=== PATIENT | female | born 1960 | race Native Hawaiian/Other Pacific Islander ===

== ENCOUNTER 2016-11-28 13:38 | Outpatient (CLI) | payer BC ==
[2016-11-28 15:22] LABS: BASOPHILS % 0.4 (0.0-1.5); EOSINOPHILS % 1.7 % (0.0-6.8); MEAN CORPUSCULAR HEMOGLOBIN 29.5 pg (28.0-34.0); MEAN CORPUSCULAR VOLUME 87.6 fl (80.0-100.0); MONOCYTES % 3.8 % (0.0-11.0); NEUTROPHILS # 4.3 # k/uL (1.4-7.7)
[2016-11-28 15:33] LABS: eGFR (African) > 60; eGFR (Non-African) > 60
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
== END 2016-11-28 13:40 ==
LOC: RHEU 13:38
PROVIDERS: ATTEND Internal Medicine
DX: M54.2 Cervicalgia (principal); M54.5 Low back pain; M77.12 Lateral epicondylitis, left elbow; M77.11 Lateral epicondylitis, right elbow; G89.4 Chronic pain syndrome
CPT/HCPCS: 36415; 80053; 84443; 85025; 85651; 86140; 86200; 86431; 86480; 99203

== ENCOUNTER 2017-01-23 14:12 | Outpatient (CLI) | payer BC ==
--- NOTE | 2017-01-23 19:53 | Diagnostic Imaging Report ---
ALFONSO ANDREWS~ [facility] [address] [facility].[address] [address] ~ ~ ~ ~ Report Submission Date: Jan 23, 2017 3:31:49 PM CDT Patient ~ Study Name: JAYDEN GUY ~ Date: Jan 23, 2017 3:07:02 PM CDT ~ Modality Type: CR Gender: F ~ Description: CHEST : 60 ~ Institution: [facility] Physician: ALFONSO ANDREWS ~ ~ ~ ~ Chest -two views CLINICAL HISTORY: ~ Chronic intermittent cough. FINDINGS: ~ Examination of the chest in PA and lateral views with no prior film for comparison demonstrates the lungs to be clear. ~Cardiovascular and mediastinal silhouettes are within normal limits. ~The bony thorax is intact. IMPRESSION: ~ No active disease. ~ Electronically signed on Jan 23, 2017 3:31:49 PM CDT by: Arvin ARMIJO
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
--- NOTE | 2017-01-27 11:56 | OP Clinic Progress Note ---
REASON FOR VISIT: Kimberly Motta returns for followup. Her chief complaint today is low back pain with cramping and occasional cramping in her legs. Her neck and elbow pain has not been an issue. She has had no joint swelling. The other issue is her positive QuantiFERON-TB Gold test and she tells me now that she is occasionally short of breath and she is coughing up sputum. PAST MEDICAL HISTORY: 1. Hypertension. 2. Chronic headaches. MEDICATIONS: 1. Hydrochlorothiazide. 2. Zyrtec. 3. Omeprazole. ALLERGIES: No known drug allergies. SOCIAL HISTORY: No smoking. No drinking. Never . REVIEW OF SYSTEMS: Still complains of bloating, putting on 40 pounds. Cough and shortness of breath as above. No nausea or vomiting. No diarrhea. She has leg cramping. PHYSICAL EXAMINATION: VITAL SIGNS: Height: 5 feet 5 inches. Weight: 230. T: 97, R: 18, heart rate: 88, BP: 150/90. HEENT: Grossly unremarkable. Lungs: Clear. Heart: Regular rhythm. Abdomen: Soft. Vascular Exam: No edema or cyanosis. Peripheral Joints: No synovitis at the DIPs, PIPs, MCPs, wrists, elbows, shoulders, hips, knees, ankles, and feet. LABORATORY STUDIES: On November 28, blood work showed a sedimentation rate of 21. TSH of 1.9. CRP is 0.35. CMP within normal limits. Glucose was elevated at 156. Rheumatoid factor and CCP antibody are negative. QuantiFERON-TB Gold is positive. IMPRESSION AND PLAN: 1. Positive QuantiFERON-TB Gold. I am starting the patient on Rifampin 300 mg 2 tablets daily. We will check sputum cultures x3. Get a chest x-ray. 2. Low back pain and cramping. We will obtain lumbar spine films. 3. No evidence of an inflammatory arthropathy at this time. 4. We will review the studies and call the patient. 5. Otherwise, no other changes at this time. Thank you very much. Best regards, ALEKSANDER
== END 2017-01-23 14:22 ==
LOC: RHEU 14:12
PROVIDERS: ATTEND Internal Medicine
DX: M54.2 Cervicalgia (principal); M54.5 Low back pain; M77.00 Medial epicondylitis, unspecified elbow
CPT/HCPCS: 71020; 72100; 99213

== ENCOUNTER 2017-02-27 13:53 | Outpatient (CLI) | payer BC ==
--- NOTE | 2017-03-02 14:55 | OP Clinic Progress Note ---
REASON FOR VISIT: Kimberly Motta returns for follow up on her positive QuantiFERON-TB Gold. She did not do the sputum culture as I requested. She is telling me that she has been taking the Rifampin 300 mg 2 tablets daily and she has stopped coughing. She has had no fevers, chills, sweats, chest pain, shortness of breath, cough or wheezing. Her complaint is continued back and neck pain and arm and shoulder pain. She lost her job at [employer] due to "pain." She also is continuing to put on weight. PAST MEDICAL HISTORY: 1. Hypertension. 2. Chronic headaches. PRESENT MEDICATIONS: 1. Rifampin. 2. Hydrochlorothiazide. 3. Zyrtec. 4. Omeprazole. ALLERGIES: She has no known drug allergies. REVIEW OF SYSTEMS: As above. PHYSICAL EXAMINATION: VITAL SIGNS: Weight: 228. Height: 5 feet 5 inches. T: 96.9, R: 12, heart rate 76, BP: 170/100. HEENT: Grossly unremarkable. LUNGS: Clear. HEART: Regular rhythm. ABDOMEN: Soft. VASCULAR: SKIN: No lesions. She is diffusely tender throughout. JOINTS: Unremarkable. LABORATORY DATA: Sedimentation rate was 21. TSH was normal at 1.9. CRP was 0.35. CMP and CBC were normal. Rheumatoid factor and CCP-antibodies are negative. RADIOLOGIC DATA: Recent chest x-ray showed no acute disease. IMPRESSION: 1. Cervicalgia. 2. Lumbago. 3. Positive QuantiFERON-TB Gold. PLAN: Continue Rifampin. I will see her back in 2 months. I have again discussed weight loss with her. I would like her to participate in physical therapy. The patient is asking for medication for her diffuse fibromyalgia-like pain. I told her that most of those medications result in weight gain and I much prefer she try physical therapy. She may need a work endurance program. Thank you very much. Best regards, ALEKSANDER
== END 2017-02-27 13:54 ==
LOC: RHEU 13:53
PROVIDERS: ATTEND Internal Medicine
DX: M54.2 Cervicalgia (principal); M54.5 Low back pain
CPT/HCPCS: 99213